=== PATIENT | female | born 1940 | race Caucasian/White ===

== ENCOUNTER → 2017-09-24 | Outpatient (CLI) | payer MEDICARE, OTHER ==
[~2017-09-24] MED LIST: ACE3 PO; ACE325 PO; ACE500 PO; ACET-1966 PO; ALB18R INH; AMI25 PO; AMIT-106 PO; APIX5TAB PO; ASP325 PO; ASPI-757 PO; ATOR10TA24 PO; ATR10 PO; BENZ200C15 PO; CALC-515 PO; CALC-649 PO; CALC-852 PO; CALC1TAB85 PO; CARB25DR2 OP; CLIN300C99 PO; CLO1 PO; CLOB15CR22 TP; CLOB50SO11 TP; CLON-303 PO; CLON-389 PO; CPAP; DEX4 FT; DILT120C18 PO; DOC100 PO; DOCU-416 PO; EST42T VG; ESTR42.5 VG; FERR-41 PO; FERR-53 PO; FERR325T24 PO; FLE100 FT; FLE100 PO; FLEC50TA16 PO; FLU IM; FLU44R INH; FLU45SYR17 IM; FLU45SYR25 IM ONLY; FLU60SYR30 IM ONLY; FLUT16SP19 NS; GAV PO; GLAT20KI3 SQ; GUAI1200 PO; GUAI600T57 PO; IRON45TA3 PO; KETO5DRO13 OP; LEV500 PO; LEVO750T44 PO; LORA-1455 PO; LORA-799 PO; LOSA25TA50 PO; LOSA50TA72 PO; LOSA50TA73 PO; LUTE20TA PO; METAMUCIL POWD283 GM PO; METH4TAB66 PO; METR-1 PO; METRO500PT PO; MOM PO; MOMR; MOMR ENA; MON10 PO; MONT10TA PO; MULT-1 PO; MULT-27 PO; OM-31CAP PO; OMEG-11 PO; OMEP40CA45 PO; PAN40 PO; PANT40TA65 PO; PER PO; POLY119P37 PO; POLY17PO25 PO; PSYL1PAC24 PO; PYRI100T57 PO; RAL60 PO; RALO60TA12 PO; RIVA20TA PO; TRIA10.8 NS; [UNRECOGNIZED DRUG - CODE] IV; [UNRECOGNIZED DRUG - CODE] PO; [UNRECOGNIZED DRUG - CODE] PO; [UNRECOGNIZED DRUG - CODE] PO; [UNRECOGNIZED DRUG - CODE] PO
== END ==
LOC: LAB 10:57
PROVIDERS: ATTEND Nurse Practitioner Primary Care
DX: I10 Essential (primary) hypertension (principal); E78.2 Mixed hyperlipidemia; J02.9 Acute pharyngitis, unspecified
CPT/HCPCS: 87081

== ENCOUNTER 2017-09-26 13:57 | Outpatient (RCR) | payer MEDICARE, OTHER ==
[2017-07-30 10:07] VITALS: BP 149/75
[2017-07-30 10:25] LABS: PLATELET COUNT, AUTOMATED 203 K/uL (150-450)
[2017-08-02 11:38] VITALS: BP 147/76
--- NOTE | 2017-08-02 13:49 | ONC Progress Note - NP.Halsey ---
Patient History Date of Service Aug 02, 2017 Reason For Visit/HPI Patient is seen in the clinic today for follow-up of her iron deficiency anemia. Patient also has a prior history of breast cancer diagnosed in 2012. Patient has a history of multiple sclerosis. Patient was seen approximately 2 months ago for a low hemoglobin and hematocrit. Iron studies were completed in ferritin level was at 9. Patient was fatigued and weak. She was started on ferrous sulfate 324 mg twice a day. Today patient reports that her energy has increased and her fatigue has decreased. She is tolerating the iron supplement without difficulty. She denies any constipation. Ferritin level is increased to 34 today. Patient has recently had an exacerbation of her MS and was treated with Solu-Medrol. She reports that her chronic back pain has completely resolved after the steroid therapy. She did experience increased heart palpitations while going through steroid therapy but this is also resolved today. She has no concerns. Problem List (1) Iron (Fe) deficiency anemia (2) Breast cancer of upper-inner quadrant of right female breast Oncology History (1) Breast cancer of upper-inner quadrant of right female breast (2) Anemia (3) Multiple sclerosis Oncology History The patient is a 76-year-old asymptomatic female who had an abnormal mammogram on routine examination on June 25, 2012 indicating a new group of pleomorphic calcifications in the medial upper portion of the right breast on mammogram. 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 Margins were positive. On July 29, 2012 the patient had a left breast mastectomy and sentinel lymph node biopsy. Zero out of four nodes were positive for malignancy. Pathology on July 29, 2012 addendum reports that the mastectomy specimen shows residual high grade ductal carcinoma in situ in the region adjacent to the biopsy cavity. Residual invasive carcinoma is not seen. The patient has also followed with her command center officer and reports that she will continue on the flecainide 100 mg twice a day. The command center officer reported to the patient that should her echocardiogram go down to 52% that then he would want to see her again, otherwise she will not follow up for another year. Patient's hemoglobin and hematocrit were noted to be decreased, with a hemoglobin of 11.2, hematocrit 34.4% and a ferritin level was 9 drawn on 12/01/ 2017. Iron studies indicate iron deficiency anemia. Patient was started on ferrous sulfate 324 mg twice a day and ferritin level is currently 34. Patient had stool occult cards completed and they came back negative. Patient refuses at this time to have upper GI scope and colonoscopy completed. Medical History Family History: FH: CHF (congestive heart failure) FATHER, , Age:79 MOTHER, , Age:88 FH: HTN (hypertension) FATHER, , Age:79 MOTHER, , Age:88 FH: AL (myocardial infarction) MATERNAL GRANDFATHER, , Age:51 FH: atrial fibrillation MOTHER, , Age:88 BROTHER OR SISTER, Age:74 BROTHER OR SISTER, Age:76 FH: heart disease MOTHER, , Age:88 PATERNAL GRANDFATHER PATERNAL GRANDMOTHER, , Age:60 years and older Medical History Family History: FH: CHF (congestive heart failure) FATHER, , Age:79 MOTHER, , Age:88 FH: HTN (hypertension) FATHER, , Age:79 MOTHER, , Age:88 FH: AL (myocardial infarction) MATERNAL GRANDFATHER, , Age:51 FH: atrial fibrillation MOTHER, , Age:88 BROTHER OR SISTER, Age:74 BROTHER OR SISTER, Age:76 FH: heart disease MOTHER, , Age:88 PATERNAL GRANDFATHER PATERNAL GRANDMOTHER, , Age:60 years and older Psychosocial History Social History Patient is Occupational History Patient is retired Alcohol History She denies any use Smoking History: No Smoking Status: Never Smoker Exposure to Second Hand Smoke?: Yes Medications and Allergies Active Scripts Atorvastatin Calcium (LIPITOR) 10 Mg Tablet, 1 TAB PO QDAY, #90 TAB 3 Refills Prov:HAWA LOERA MD 06/27/17 Pantoprazole Sodium (PANTOPRAZOLE SODIUM) 40 Mg Tablet., 1 TAB PO QDAY, #90 TAB.SR 3 Refills Prov:HAWA LOERA MD 05/30/17 Ferrous Sulfate (FERROUS SULFATE) 325 Mg Tablet., 325 MG PO BID, #60 TAB 6 Refills Prov:KIRILL CARO SENIOR CONTROLS ENGINEER-BC, ONC 05/21/17 Raloxifene Hcl (EVISTA) 60 Mg Tablet, 1 TAB PO QDAY, #90 TAB 3 Refills Prov:HAWA LOERA MD 02/26/17 Montelukast Sodium (SINGULAIR) 10 Mg Tablet, 1 TAB PO QDAY, #90 TAB 4 Refills Prov:HAWA LOERA MD 11/08/16 Diltiazem Hcl (DILTIAZEM 24HR CD) 120 Mg Cap.er.24h, 1 CAP PO QDAY, #30 TAB Prov:HAWA LOERA MD 02/08/16 Clonazepam (CLONAZEPAM) 1 Mg Tablet, 1.5 TAB PO HS for Sleep, #45 TAB 1 Refill may take 1/2 tab if awakens during the night may take 1/2 tab during daytime prn tremorms Prov:HAWA LOERA MD 03/15/15 Reported Medications Guaifenesin (MUCINEX) 1,200 Mg Tbmp.12hr, 1200 MG PO HS 08/02/17 Polyethylene Glycol 3350 (Glycolax) 17 Gram/Dose Powder, 17 G PO PRN 03/22/17 Acetaminophen (TYLENOL) 325 Mg Tablet, 500 MG PO PRN, TAB 03/22/17 Calcium Carbonate (TUMS) 200 Mg Tab.chew, 200 MG PO DAILY, TAB.CHEW 03/22/17 Albuterol Sulfate (VENTOLIN HFA) 18 Gm Inh, 2 PUFF INH Q4-6H Y for shortness of breath, INH 03/07/17 Carboxymethylcell/Hypromellose (GENTEAL GEL DROPS) 25 Ml Drp.lq.gel, 1-2 GTT OP BID 09/20/16 Flecainide Acetate (FLECAINIDE ACETATE) 50 Mg Tablet, 1 TAB PO BID, TAB 08/14/16 Calcium Carbonate/Vitamin D3 (CALCIUM + VITAMIN D TABLET) 1 Each Tablet, 1 TAB PO QDAY 08/14/16 Ketotifen Fumarate (ZADITOR) 5 Ml Drops, 1 GTT OP BID Y for allergies 02/09/16 Cpap (CPAP HOME) Inha, HS 02/08/16 Apixaban (ELIQUIS) 5 Mg Tablet, 1 TAB PO BID, TAB 11/30/15 Fluticasone Prop 50 Mcg Ns (FLONASE 50 MCG NS) 16 Gm Kulm.susp, 1 SPRAY NS QDAY , BOT 11/20/15 Fluticasone Prop 44 Mcg (FLOVENT HFA 44 MCG) 44 Mcg Inha, 2 PUFF INH BID 07/06/15 Psyllium Seed/Aspartame (METAMUCIL POWDER) 283 Gm Powder, 1 TSP PO DAILY 03/16/14 Om-3/Dha/Epa/Fish Oil/Vit D3 (FISH OIL + VITAMIN D-3 SOFTGEL) 1 Each Capsule, 1 EACH PO DAILY, CAPSULE 03/16/14 Docusate Sodium (COLACE) 100 Mg Capsule, 1 CAP PO BID, CAPSULE 03/16/14 Amitriptyline Hcl (AMITRIPTYLINE HCL) 25 Mg Tablet, 1 TAB PO QHS, TAB 03/10/14 Mu-Vits-Min Th/Lycopene/Lutein (CENTRUM SILVER TABLET) 1 Each Tablet, 1 TAB PO DAILY 03/09/14 Discontinued Reported Medications Methylprednisolone (METHYLPREDNISOLONE) 4 Mg Tab.ds.pk, 4 MG PO DIRECTED, TAB 03/22/17 Allergies: Coded Allergies: Sulfa (Sulfonamide Antibiotics) (Verified Allergy, Severe, HIVES, 11/20/15) cefaclor (Verified Allergy, Severe, HIVES, 11/20/15) heparin (Verified Allergy, Severe, RASH, 11/20/15) amoxicillin (Verified Allergy, Intermediate, RASH, 11/20/15) fingolimod (Unverified Allergy, Intermediate, palpatations, elevated BP, ) nitrofurantoin (Verified Allergy, Mild, ITCHING, 11/20/15) bisacodyl (Verified Allergy, Unknown, ANAPHYLAXIS, 11/20/15) codeine (Unverified Allergy, Unknown, 11/20/15) risedronate sodium (Unverified Allergy, Unknown, Exacerbate MS, 11/20/15) shellfish derived (Unverified Allergy, Unknown, Lobster =vomitting, 11/20/15 ) trastuzumab (Verified Allergy, Unknown, 11/20/15) glatiramer acetate (Verified Adverse Reaction, Intermediate, VOMITING AND FEVER AND CHILLS, 11/20/15) WALDEMAR Inhibitors (Unverified Adverse Reaction, Mild, cough, 11/20/15) benazepril (Verified Adverse Reaction, Mild, COUGH, 11/20/15) Uncoded Allergies: magnesium citrate (Adverse Reaction, Severe, nausea and vomiting, 04/04/14) Review of System/Physical Exam Review of Systems All Systems Reviewed/Normal: Yes, Except as Noted Hematologic: Positive for Fatigue (improved and rated a 5 out of 10) Musculoskeletal: Positive for Muscle Pain (related to 2 out of 10), Positive for Joint Pain, Positive for Bone Pain Physical Exam Vital Signs Temperature: 96.8 Pulse: 71 BP Systolic: 147 BP Diastolic: 76 Respiratory Rate: 16 O2 SAT: 97 O2 Delivery: Room Air Height (inches) 63.00 Weight lb: 142 Weight oz: 6.0 Weight Kg (Gabino): 64.58 Pain: 2 ECOG Score: 0 General: Stable, Well Developed, Well Nourished, Not In Acute Distress Neck: Supple Lungs: Clear to Auscultation Heart: Regular Rate, Regular Rhythm, No Gallops Abdomen: Soft and Nontender, No Hepatosplenomegaly, No Masses, Other (bowel sounds are active) Extremities: No Cyanosis, No Clubbing, No Edema Lymphadenopathy: No Cervical Psychiatric: Mood appears normal, Affect appears normal Skin: No Skin Rashes Diagnostic Studies Diagnostic Studies Laboratory Laboratory Tests 07/30/17 10:05 Laboratory Tests 07/30/17 10:05: White Blood Count 6.9, Red Blood Count 5.19, Hemoglobin 14.7, Hematocrit 44.2, Mean Corpuscular Volume 85.2, Mean Corpuscular Hemoglobin 28.3, Mean Corpuscular Hemoglobin Concent 33.3, Red Cell Distribution Width 22.5, Platelet Count 203, Mean Platelet Volume 9.1, Neutrophils (%) (Auto) 56.0, Lymphocytes (% ) (Auto) 33.1, Monocytes (%) (Auto) 7.8, Eosinophils (%) (Auto) 2.8, Basophils ( %) (Auto) 0.3, Nucleated RBC Relative Count (auto) 0.0, Neutrophils # (Auto) 3.9 , Lymphocytes # (Auto) 2.3, Monocytes # (Auto) 0.5, Eosinophils # (Auto) 0.2, Basophils # (Auto) 0.0, Nucleated RBC Absolute Count (auto) 0.00, Peripheral Blood Smear Yes, Sodium Level 141, Potassium Level 4.7, Chloride Level 103, Carbon Dioxide Level 26, Blood Urea Nitrogen 16, Creatinine 1.00, Glomerular Filtration Rate Calc 53.5, Random Glucose 86, Calcium Level 9.4, Iron Level 93, Total Iron Binding Capacity 275, Percent Iron Saturation 33.8, Ferritin 34, Total Bilirubin 0.3, Aspartate Amino Transf (AST/SGOT) 26, Alanine Aminotransferase (ALT/SGPT) 34, Alkaline Phosphatase 86, Total Protein 6.4, Albumin 3.6 Assessment and Plan Assessment & Plan 1. Stage IB (pT1c pN0 cM0) invasive ductal carcinoma of the right breast. Tumor size was 2 cm ER/SD negative, HER2/randell positive by immunohistochemistry. Four sentinel lymph nodes were negative for metastasis. Patient received adjuvant chemotherapy with six cycles of TCH regimen with carboplatin, Taxotere and Herceptin, received between August 28, 2012 through January 26, 2013. Patient completed one year of Herceptin adjuvant therapy September 15, 2013. Her echocardiogram showed normal left ventricular ejection fraction after the end of her treatment, done February 2014, and left ventricular ejection fraction at that time was 60%. Her CA 27-29 and CA 15-3 are within the normal range and remain stable. She will follow again in November with a CBC, chem panel, CA 27-29 and CA 15-3. Recent mammogram was unremarkable. Prescriptions for bra and prosthesis were completed earlier this month. 2. Left lower lobe pulmonary nodule. Patient had CT scan in the past and PET scan which were negative for any progression. The patient is followed by a outdoor landscape architect 3. Drop of her hemoglobin by nearly 1 g. stools for Hemoccult blood were negative. Patient does not want to have a GI workup completed due to previous history of complications in 2013. Patient started on iron supplement and has had significant improvement overall. She will continue on one tablet a day. 4. Atrial fibrillation status post ablation, January 2016. 5. Multiple sclerosis recent exacerbation, patient was treated with Solu- Medrol. No recent exacerbation 6. History of small bowel obstruction status post resection, September 2014. 7. Iron deficiency anemia. Ferritin level is 9. She was started on ferrous sulfate 324 mg twice a day. Repeat ferritin level and iron studies are improved. Patient is having good toleration. She will continue on 1 tablet daily. 8. Patient has initiated a do not resuscitate order with our last office visit. PLAN 1. Follow-up in November with Dr. Vargas for management of her breast cancer 2. Continue ferrous sulfate 325 mg 1 tablet daily 3. Patient to return in six months with CBC, chem panel, CA 27-29 and CA 15-3. 4. Patient is to contact us for any new concerns or complaints. I personally spent a total of 20 minutes. Of that 20 minutes was counseling/ coordination of patient's care. See my note above for details. Copies to: HAWA LOERA MD,KIRILL Quezada SENIOR CONTROLS ENGINEER-BC, ONC Aug 02, 2017 13:49
[2017-09-20 13:11] VITALS: BP 142/85
[2017-09-20 13:16] LABS: PLATELET COUNT, AUTOMATED 203 K/uL (150-450)
[2017-09-26 14:01] VITALS: BP 137/83
--- NOTE | 2017-09-26 20:04 | ONCOLOGY FOLLOW UP NOTE ---
EVENT DATE: September 26, 2017 DIAGNOSES 1. History of breast cancer. 2. Multiple sclerosis times 21 years. 3. Small bowel obstruction, status post resection in September 2012. CHIEF COMPLAINT The patient is here today for followup of her breast cancer. ONCOLOGY HISTORY The patient is a 77-year-old asymptomatic female who had an abnormal mammogram on routine examination on June 25, 2012 indicating a new group of pleomorphic calcifications in the medial upper portion of the right breast on mammogram. 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 Margins were positive. On July 29, 2012 the patient had a left breast mastectomy and sentinel lymph node biopsy. Zero out of four nodes were positive for malignancy. Pathology on July 29, 2012 addendum reports that the mastectomy specimen shows residual high grade ductal carcinoma in situ in the region adjacent to the biopsy cavity. Residual invasive carcinoma is not seen. The patient also followed with her automat car attendant prior to this office visit and reports that she will continue on the flecainide 100 mg twice a day. The automat car attendant reported to the patient that should her echocardiogram go down to 52% that then he would want to see her again, otherwise she will not follow up for another year. PATHOLOGY On July 15, 2012: Right breast infiltrating ductal carcinoma and extensive high grade ductal carcinoma in situ with comedo necrosis. Size of invasive carcinoma: 2.0 x 1.0 x 1.8 cm. Distant from margins: Tumor is present at the surgical margins. Histological: Grade 2. Lymphovascular invasion: Negative. Lymph nodes with metastatic tumor: Negative. Estrogen receptor: Negative. Progesterone receptor: Negative. HER2/randell: Over expressed, 3+. KI-6y: Intermediate at 28%. P53: Negative. TREATMENT The patient is receiving Taxotere, carboplatin, and Herceptin. This was started on August 28, 2012 on a three week basis. There was a disruption due to a small bowel ileus and obstruction. HISTORY OF PRESENT ILLNESS Patient is here today for followup of her breast cancer. She is complaining of runny nose and occasional cough. She has pain in the wrist, neck, lower back. She has tingling and numbness and headache. She has also easy bruising and she is weak, tired and fatigued. PAST MEDICAL HISTORY 1. Multiple sclerosis diagnosed 21 years ago. 2. Gastroesophageal reflux disease (GERD). 3. Migraines. 4. Hypertension. 5. Hypercholesterolemia. 6. Degenerative joint disease (DJD). 7. Atrial fibrillation. 8. Arthritis. PAST SURGICAL HISTORY 1. Breast biopsies on the right times five, left times one from the mid to present. 2. Cholecystectomy in 1987. 3. Appendectomy in 1987. 4. Vaginal hysterectomy in 1977, this was for vaginal prolapse, ovaries were not removed. 5. Bilateral cataracts in 2008. 6. Open reduction internal fixation (ORIF) of the left fifth metatarsal in the mid . 7. Direct laryngoscope with excision, benign lesion vocal cord, in October of 1999. 8. Acute obstructive epiglottis with intubation and mechanical ventilation for two days in August of 1999. SOCIAL HISTORY The patient is . She has two children. She is a retired registered RN in the surgical area. She drinks maybe two to three drinks per month. She does not smoke or use tobacco products. Her father was a heavy cigar and cigarette smoker, so she does have second hand smoke exposure. FAMILY HISTORY Father had cancer of his lower lip at age 60. Sister had pancreatic cancer at age 69. Mothers brother had pancreatic cancer at age 69. MEDICATIONS 1. Flecainide 100 mg twice daily. 2. Lipitor 10 mg daily. 3. Losartan/Cozaar 25 mg twice a day. 4. Amitriptyline 35 mg at bedtime. 5. Klonopin 1 mg at bedtime. 6. Singular 10 mg daily. 7. Nasonex nasal spray p.r.n. 8. Aspirin 325 mg daily. 9. Calcium 500 mg with vitamin D 500 mg three times a day. 10. Centrum silver one daily. 11. Evista 60 mg daily. 12. Tylenol 650 mg p.r.n. 13. Gaviscon liquid p.r.n. 14. Premarin vaginal cream twice weekly. 15. Colace 100 mg twice a day. 16. Metamucil one teaspoon daily. 17. Pantoprazole 40 mg daily. 18. Ativan 1 mg p.o. every 4 to 6 hours p.r.n. nausea. ALLERGIES 1. AMOXICILLIN, causes a rash. 2. CECLOR, possible reaction. 3. MACRODANTIN, causes itching. 4. SULFA, causes hives. 5. LOTENSIN, causes a cough. 6. TYLENOL #3 WITH CODEINE. The patient had a reaction. 7. IV LEVAQUIN possible reaction in the veins. THE PATIENT HAS SEVERAL ENVIRONMENTAL ALLERGIES TO ADHESIVE TAPES, BAND-AIDS, DUST AND POLLEN. REVIEW OF SYSTEMS CONSTITUTIONAL: No appetite or weight change. No fever, chills or sweating. No recent infection. HEENT: Ears: No tinnitus or hearing problem. Nose: She has nasal discharge. No epistaxis. Throat: No sore throat or mouth ulcers. Eyes: No diplopia or visual changes. RESPIRATORY: She has cough. CARDIOVASCULAR: She had rapid A-fib recently, treated with ablation therapy January 2016. GASTROINTESTINAL: She has constipation. GENITOURINARY: No hematuria or dysuria. MUSCULOSKELETAL: She has pain in the wrists, neck, lower back. NEUROLOGICAL: She has tingling and numbness in the hands and feet and headaches. HEMATOLOGIC/LYMPHATIC: She bruises easily. She is weak, tired and fatigued. SKIN: No skin rash or lumps. PSYCHIATRIC: No anxiety or depression. PHYSICAL EXAMINATION GENERAL: Looks stable. Well-developed, well-nourished, and in no acute distress. VITAL SIGNS: Blood pressure 137/83, pulse 79 per minute, respirations 16 per minute, temperature 97.6, pulse ox 95% on room air. HEENT: Head: Atraumatic. No sinus tenderness to palpation. Eyes: No icterus or conjunctivitis. Mouth and throat: No oral thrush or mucositis. NECK: Supple. No cervical or supraclavicular lymphadenopathy. LUNGS: Clear to auscultation and percussion bilaterally. HEART: Regular rate and rhythm. No gallops, murmurs, clicks or rubs. ABDOMEN: Soft and lax. No tenderness. No hepatosplenomegaly. No masses. EXTREMITIES: No cyanosis, clubbing or edema. LYMPHATICS: No peripheral lymphadenopathy. NEUROLOGICAL: Conscious, alert and oriented times three. No focal motor or sensory deficits. PSYCHIATRIC: Mood and affect appear normal. SKIN: No skin rash, bruise or purpuric eruption. DIAGNOSTIC DATA CBC shows a white count of 6000, hemoglobin 15.9, hematocrit 45.6, platelets 203 ,000. Chem panel normal except creatinine 1.1. CA 15-3 is normal at 11 and CA 27-29 is normal at 14. ASSESSMENT 1. Stage IB (pT1c pN0 cM0) invasive ductal carcinoma of the right breast. Tumor size was 2 cm ER/FL negative, HER2/randell positive by immunohistochemistry. Four sentinel lymph nodes were negative for metastasis. Patient received adjuvant chemotherapy with six cycles of TCH regimen with carboplatin, Taxotere and Herceptin, received between August 28, 2012 through January 26, 2013. She completed one year of Herceptin adjuvant therapy September 15, 2013. Her echocardiogram showed normal left ventricular ejection fraction after the end of her treatment, done February 2014, and left ventricular ejection fraction at that time was 60%. Her CA 27-29 and CA 15-3 currently are normal and stable. I am planning to continue followup. I am planning to see her again in six months with CBC, chem panel, CA 27-29 and CA 15-3, and I am planning after that to start to see her once a year, as the patient will be completing five years in six months. 2. Left lower lobe pulmonary nodule. Patient had CT in the past and PET scan which were negative for any progression. The patient is followed by a grain blender 3. Iron deficiency anemia. Patient currently on iron supplement started in May 2017. I advised the patient to continue iron supplementation for a total of six months to replenish her iron stores. 4. Atrial fibrillation status post ablation, January 2016. 5. Multiple sclerosis which is getting worse lately. 6. History of small bowel obstruction status post resection, September 2014. PLAN 1. Continue followup. 2. Patient to return in six months with CBC, chem panel, CA 27-29 and CA 15-3. 3. Patient is to contact us for any new concerns or complaints. [facility]
== END 2017-10-04 16:21 | disposition home or self-care (01) ==
LOC: ONC 13:57
PROVIDERS: ATTEND Internal Medicine Hematology
DX: Z85.3 Personal history of malignant neoplasm of breast (principal); R91.1 Solitary pulmonary nodule; I48.91 Unspecified atrial fibrillation; G35 Multiple sclerosis; D50.9 Iron deficiency anemia, unspecified; Z92.21 Personal history of antineoplastic chemotherapy; R05 Cough; R53.1 Weakness; R53.83 Other fatigue; K59.00 Constipation, unspecified; Z79.82 Long term (current) use of aspirin; Z79.899 Other long term (current) drug therapy
CPT/HCPCS: 36415; 82728; 83540; 83550; 85025; 86300; G0463; 82040; 82247; 82310; 82374; 82435; 82565; 82947; 84075; 84132; 84155; 84295; 84450; 84460; 84520; 99212

== ENCOUNTER → 2017-12-30 | Outpatient (CLI) | payer MEDICARE, OTHER ==
[~2017-12-30] MED LIST changes: +ACET500T68 PO; -CLON-303 PO; +CLON-304 PO
== END ==
LOC: LAB 13:24
PROVIDERS: ATTEND Nurse Practitioner Primary Care
DX: J02.9 Acute pharyngitis, unspecified (principal)
CPT/HCPCS: 87081

== ENCOUNTER 2018-04-17 12:23 | Outpatient (RCR) | payer MEDICARE, OTHER ==
[2018-04-11 11:49] VITALS: BP 161/82
[2018-04-11 12:01] LABS: PLATELET COUNT, AUTOMATED 197 K/uL (150-450)
[~2018-04-17 12:23] MED LIST changes: -CLON-304 PO; +CLON-333 PO; +DILT60TA33 PO; +FLU180SY11 IM; -LOSA25TA50 PO; +LOSA25TA52 PO; -LOSA50TA72 PO; +LOSA50TA74 PO
[2018-04-17 12:38] VITALS: BP 148/85
--- NOTE | 2018-04-18 00:36 | [facility] ONCOLOGY NOTE ---
EVENT DATE: April 17, 2018 DIAGNOSES 1. History of breast cancer. 2. Multiple sclerosis times 21 years. 3. Small bowel obstruction, status post resection in September 2012. CHIEF COMPLAINT The patient is here today for followup of her breast cancer. ONCOLOGY HISTORY The patient is a 77-year-old asymptomatic female who had an abnormal mammogram on routine examination on June 25, 2012 indicating a new group of pleomorphic calcifications in the medial upper portion of the right breast on mammogram. 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 Margins were positive. On July 29, 2012 the patient had a left breast mastectomy and sentinel lymph node biopsy. Zero out of four nodes were positive for malignancy. Pathology on July 29, 2012 addendum reports that the mastectomy specimen shows residual high grade ductal carcinoma in situ in the region adjacent to the biopsy cavity. Residual invasive carcinoma is not seen. The patient also followed with her acid correction hand prior to this office visit and reports that she will continue on the flecainide 100 mg twice a day. The acid correction hand reported to the patient that should her echocardiogram go down to 52% that then he would want to see her again, otherwise she will not follow up for another year. PATHOLOGY On July 15, 2012: Right breast infiltrating ductal carcinoma and extensive high grade ductal carcinoma in situ with comedo necrosis. Size of invasive carcinoma: 2.0 x 1.0 x 1.8 cm. Distant from margins: Tumor is present at the surgical margins. Histological: Grade 2. Lymphovascular invasion: Negative. Lymph nodes with metastatic tumor: Negative. Estrogen receptor: Negative. Progesterone receptor: Negative. HER2/randell: Over expressed, 3+. KI-6y: Intermediate at 28%. P53: Negative. TREATMENT The patient is receiving Taxotere, carboplatin, and Herceptin. This was started on August 28, 2012 on a three week basis. There was a disruption due to a small bowel ileus and obstruction. HISTORY OF PRESENT ILLNESS Patient is here today for followup of her breast cancer. She is complaining of cough and shortness of breath sometimes due to asthma. She has pain in her hands, feet, ankles, and wrist. She has also neuropathy, more in the feet than the hands. She is also having headache. She bruises easily. She is weak, tired and fatigued. PAST MEDICAL HISTORY 1. Multiple sclerosis diagnosed 21 years ago. 2. Gastroesophageal reflux disease (GERD). 3. Migraines. 4. Hypertension. 5. Hypercholesterolemia. 6. Degenerative joint disease (DJD). 7. Atrial fibrillation. 8. Arthritis. PAST SURGICAL HISTORY 1. Breast biopsies on the right times five, left times one from the mid to present. 2. Cholecystectomy in 1987. 3. Appendectomy in 1987. 4. Vaginal hysterectomy in 1977, this was for vaginal prolapse, ovaries were not removed. 5. Bilateral cataracts in 2008. 6. Open reduction internal fixation (ORIF) of the left fifth metatarsal in the mid . 7. Direct laryngoscope with excision, benign lesion vocal cord, in October of 1999. 8. Acute obstructive epiglottis with intubation and mechanical ventilation for two days in August of 1999. SOCIAL HISTORY The patient is . She has two children. She is a retired registered RN in the surgical area. She drinks maybe two to three drinks per month. She does not smoke or use tobacco products. Her father was a heavy cigar and cigarette smoker, so she does have second hand smoke exposure. FAMILY HISTORY Father had cancer of his lower lip at age 60. Sister had pancreatic cancer at age 69. Mothers brother had pancreatic cancer at age 69. MEDICATIONS 1. Flecainide 100 mg twice daily. 2. Lipitor 10 mg daily. 3. Losartan/Cozaar 25 mg twice a day. 4. Amitriptyline 35 mg at bedtime. 5. Klonopin 1 mg at bedtime. 6. Singular 10 mg daily. 7. Nasonex nasal spray p.r.n. 8. Aspirin 325 mg daily. 9. Calcium 500 mg with vitamin D 500 mg three times a day. 10. Centrum silver one daily. 11. Evista 60 mg daily. 12. Tylenol 650 mg p.r.n. 13. Gaviscon liquid p.r.n. 14. Premarin vaginal cream twice weekly. 15. Colace 100 mg twice a day. 16. Metamucil one teaspoon daily. 17. Pantoprazole 40 mg daily. 18. Ativan 1 mg p.o. every 4 to 6 hours p.r.n. nausea. ALLERGIES 1. AMOXICILLIN, causes a rash. 2. CECLOR, possible reaction. 3. MACRODANTIN, causes itching. 4. SULFA, causes hives. 5. LOTENSIN, causes a cough. 6. TYLENOL #3 WITH CODEINE. The patient had a reaction. 7. IV LEVAQUIN possible reaction in the veins. THE PATIENT HAS SEVERAL ENVIRONMENTAL ALLERGIES TO ADHESIVE TAPES, BAND-AIDS, DUST AND POLLEN. REVIEW OF SYSTEMS CONSTITUTIONAL: No appetite or weight change. No fever, chills or sweating. No recent infection. HEENT: Ears: No tinnitus or hearing problem. Nose: No nasal discharge or epistaxis. Throat: No sore throat or mouth ulcers. Eyes: No diplopia or visual changes. RESPIRATORY: Patient has cough and shortness of breath. CARDIOVASCULAR: No chest pain, orthopnea, or paroxysmal nocturnal dyspnea (PND). No edema. No palpitations. GASTROINTESTINAL: No nausea or vomiting. No diarrhea or constipation. No change in bowel movements. No heartburn or swallowing difficulties. No abdominal pain. No jaundice. No hematemesis, melena or rectal bleeding. GENITOURINARY: No hematuria or dysuria. MUSCULOSKELETAL: She has pain in the hands, feet, ankles, and wrists. NEUROLOGICAL: She has neuropathy, more in the feet than the hands. She also has occasional headache. HEMATOLOGIC/LYMPHATIC: She bruises easily. She is weak, tired, and fatigued. SKIN: No skin rash or lumps. PSYCHIATRIC: No anxiety or depression. PHYSICAL EXAMINATION GENERAL: Looks stable. Well-developed, well-nourished, and in no acute distress. VITAL SIGNS: Blood pressure 148/85, pulse 72 per minute, respirations 16 per minute, temperature 98, pulse oximetry 95% on room air. HEENT: Head: Atraumatic. No sinus tenderness to palpation. Eyes: No icterus or conjunctivitis. Mouth and throat: No oral thrush or mucositis. NECK: Supple. No cervical or supraclavicular lymphadenopathy. LUNGS: Clear to auscultation and percussion bilaterally. HEART: Regular rate and rhythm. No gallops, murmurs, clicks or rubs. ABDOMEN: Soft and lax. No tenderness. No hepatosplenomegaly. No masses. EXTREMITIES: No cyanosis, clubbing or edema. LYMPHATICS: No peripheral lymphadenopathy. NEUROLOGICAL: Conscious, alert and oriented times three. No focal motor or sensory deficits. PSYCHIATRIC: Mood and affect appear normal. SKIN: No skin rash, bruise or purpuric eruption. DIAGNOSTIC DATA CBC showed a white count of 6.5, hemoglobin 14.4, hematocrit 43.4, platelets 197,000. Chem panel totally normal. CA 15-3 is normal at 11, and CA 27-29 is normal at 10.4. ASSESSMENT 1. Stage IB (pT1c pN0 cM0) invasive ductal carcinoma of the right breast. Tumor size was 2 cm, ER/RI negative, HER2/randell positive by immunohistochemistry. Four sentinel lymph nodes were negative for metastasis. Patient received adjuvant chemotherapy with six cycles of TCH regimen with carboplatin, Taxotere and Herceptin received between August 28, 2012, through January 26, 2013. She completed one year of Herceptin adjuvant therapy September 15, 2013. Her echocardiogram done in February 2014 showed left ventricular ejection fraction at 60%. CA 27-29 and CA 15-3 currently are normal and stable. Her CA 15-3 is 11 and CA 27-29 is 10.4. I am planning to continue followup. As the patient is over five years since her diagnosis, I am planning to see her in a year with CBC, chem panel, CA 27-29 and CA 15-3. 2. Atrial fibrillation status post ablation, January 2016. Currently on Eliquis. 3. Multiple sclerosis, followed by neurologist. 4. History of small bowel obstruction status post resection, September 2014. PLAN 1. Continue followup. 2. Patient to return in one year with CBC, chem panel, CA 27-29 and CA 15-3. 3. Patient is to contact us for any new concerns or complaints. [facility] HOSPITALRomero
== END 2018-05-14 13:19 | disposition home or self-care (01) ==
LOC: ONC 12:23
PROVIDERS: ATTEND Internal Medicine Hematology
DX: Z85.3 Personal history of malignant neoplasm of breast (principal); I48.91 Unspecified atrial fibrillation; G35 Multiple sclerosis; R05 Cough; R06.02 Shortness of breath; G62.9 Polyneuropathy, unspecified; Z92.21 Personal history of antineoplastic chemotherapy; R53.1 Weakness; R53.83 Other fatigue; R51 Headache
CPT/HCPCS: 85025; 86300; G0463; 82040; 82247; 82310; 82374; 82435; 82565; 82947; 84075; 84132; 84155; 84295; 84450; 84460; 84520; 99212

== ENCOUNTER → 2018-05-22 | Outpatient (CLI) | payer MEDICARE, OTHER ==
--- NOTE | 2018-05-23 13:13 | RADIOLOGY IMAGING REPORT ---
[place] [facility] [place] RONDA CONTE : [id number] MR: [id number] V: [id number] EXAM DATE: [id number] ORDERING PHYSICIAN: EVELYN FENG TECHNOLOGIST: Sherin Pitts PROCEDURE: MAMMOGRAM SCREENING LEFT UNILATERAL WITH CAD ASSISTED INTERPRETATION & 3D TOMOSYNTHESIS COMPARISON: Prior mammograms 05/16/17, 05/03/16, 06/02/15, 06/29/14, 06/26/13. INDICATIONS: SCREENING FINDINGS: Moderately dense heterogeneous fibroglandular tissue is seen throughout the Left breast. The parenchymal pattern has remained stable allowing for difference in mammographic technique & patient positioning. There is no evidence of malignant appearing mass, malignant appearing calcifications or other secondary sign of malignancy in the Left breast. DIAGNOSTIC CATEGORY 1--NEGATIVE. RECOMMENDATIONS: ROUTINE MAMMOGRAM AND CLINICAL EVALUATION. IMPRESSION: BIRADS 1: Negative. No significant abnormality is seen. Dictated by: Ella Alvarado M.D. on 05/22/2018 at 11:13 Transcribed by: MIKE on 05/22/2018 at 13:38 Approved by: Ella Alvarado M.D. on 05/23/2018 at 13:11 [facility]
== END ==
LOC: MAMO 10:36
PROVIDERS: ATTEND Internal Medicine Hematology
DX: C50.211 Malignant neoplasm of upper-inner quadrant of right female breast (principal)
CPT/HCPCS: 77063; 77067

== ENCOUNTER 2018-08-01 16:38 | Emergency (ER) | payer MEDICARE, OTHER ==
[~2018-08-01 16:38] MED LIST changes: +DILT120C12 PO; -DILT120C18 PO; +DILT180C4 PO; -LOSA25TA52 PO; +LOSA25TA57 PO; -LOSA50TA74 PO; +LOSA50TA80 PO
--- NOTE | 2018-08-01 17:03 | ER Report ---
History and Physical Time Seen By MD: 16:50 Hx. of Stated Complaint: pt slipped on ice and hit tailbone and back of head. HPI/ROS CHIEF COMPLAINT: Head injury, back pain after fall. HISTORY OF PRESENT ILLNESS: She reports that approximately 3:30 she was walking outside of her house and pain attention to the ice but slipped on a patch of ice on her sidewalk she fell backwards struck her tailbone and hit the back of her head. She did not lose consciousness. She was able to get herself up and a bili back in the house. At this point she got an ice pack but due to the continued pain, swelling, and the fact that she is on Elequis is concerned about a bleed she presented to the emergency department. Pain is now moderate and located in the back of her head and lower back/tailbone. She denies blurred vision, diffic ulty breathing, chest pain, nausea or vomiting, new weakness or numbness, or any other associated symptoms. She is on Elequis for atrial fibrillation. REVIEW OF SYSTEMS: Constitutional: No fever, no chills. Eyes: no blurred vision ENT: no epistaxis, no dental injury Cardiovascular: No chest pain, no palpitations. Respiratory: No cough, no shortness of breath. Gastrointestinal: No abdominal pain, no vomiting. Genitourinary: no dysuria Musculoskeletal: above Skin: No rashes; contusion to back of head Neurological: no loss of consciousness Remainder of the 14 system rev: Yes Allergies: Coded Allergies: Sulfa (Sulfonamide Antibiotics) (Verified Allergy, Severe, HIVES, 11/20/15) cefaclor (Verified Allergy, Severe, HIVES, 11/20/15) heparin (Verified Allergy, Severe, RASH, 11/20/15) amoxicillin (Verified Allergy, Intermediate, RASH, 11/20/15) fingolimod (Unverified Allergy, Intermediate, palpatations, elevated BP, 11/20/15) nitrofurantoin (Verified Allergy, Mild, ITCHING, 11/20/15) bisacodyl (Verified Allergy, Unknown, ANAPHYLAXIS, 11/20/15) codeine (Unverified Allergy, Unknown, 11/20/15) risedronate sodium (Unverified Allergy, Unknown, Exacerbate MS, 11/20/15) shellfish derived (Unverified Allergy, Unknown, Lobster =vomitting, 11/20/15) trastuzumab (Verified Allergy, Unknown, 11/20/15) glatiramer acetate (Verified Adverse Reaction, Intermediate, VOMITING AND FEVER AND CHILLS, 11/20/15) WALDEMAR Inhibitors (Unverified Adverse Reaction, Mild, cough, 11/20/15) benazepril (Verified Adverse Reaction, Mild, COUGH, 11/20/15) Uncoded Allergies: colonoscopy prep (Allergy, Unknown, 08/01/18) magnesium citrate (Adverse Reaction, Severe, nausea and vomiting, 04/04/14) Home Meds Active Scripts Atorvastatin Calcium (LIPITOR) 10 Mg Tablet, 1 TAB PO QDAY, #90 TAB 3 Refills Prov:HAWA LOERA MD 07/09/18 Pantoprazole Sodium (PANTOPRAZOLE SODIUM) 40 Mg Tablet.dr, 1 TAB PO QDAY, #90 TAB.SR 3 Refills Prov:HAWA LOERA MD 07/09/18 Raloxifene Hcl (EVISTA) 60 Mg Tablet, 1 TAB PO QDAY, #90 TAB 3 Refills Prov:HAWA LOERA MD 04/16/18 Montelukast Sodium (SINGULAIR) 10 Mg Tablet, 1 TAB PO QDAY, #90 TAB 3 Refills Prov:HAWA LOERA MD 02/03/18 Clonazepam (CLONAZEPAM) 1 Mg Tablet, 1.5 TAB PO HS for Sleep, #45 TAB 1 Refill may take 1/2 tab if awakens during the night may take 1/2 tab during daytime prn tremorms Prov:HAWA LOERA MD 03/15/15 Reported Medications Diltiazem Hcl (DILTIAZEM 24HR CD) 180 Mg Cap.er.24h, 1 CAP PO QDAY, CAP 07/09/18 Diltiazem Hcl (DILTIAZEM HCL) 60 Mg Tablet, 1 TAB PO QID PRN for atrial fib 02/19/18 Acetaminophen (TYLENOL EXTRA STRENGTH) 500 Mg Tablet, 2 TAB PO QID PRN for pain, CAP 10/15/17 Guaifenesin (MUCINEX) 1,200 Mg Tbmp.12hr, 1 TAB PO HS 08/02/17 Polyethylene Glycol 3350 (Glycolax) 17 Gram/Dose Powder, 17 G PO PRN 03/22/17 Calcium Carbonate (TUMS) 200 Mg Tab.chew, 1 TAB PO DAILY PRN for heartburn, TAB.CHEW 03/22/17 Albuterol Sulfate (VENTOLIN HFA) 18 Gm Inh, 2 PUFF INH Q4-6H PRN for shortness of breath, INH 03/07/17 Carboxymethylcell/Hypromellose (GENTEAL GEL DROPS) 25 Ml Drp.lq.gel, 1-2 GTT OP DAILY 09/20/16 Calcium Carbonate/Vitamin D3 (CALCIUM + VITAMIN D TABLET) 1 Each Tablet, 1 TAB PO QDAY 08/14/16 Cpap (CPAP HOME) Inha, HS 02/08/16 Apixaban (ELIQUIS) 5 Mg Tablet, 1 TAB PO BID, TAB 11/30/15 Fluticasone Prop 50 Mcg Ns (FLONASE 50 MCG NS) 16 Gm [place].susp, 1 SPRAY NS QDAY, BOT 11/20/15 Fluticasone Prop 44 Mcg (FLOVENT HFA 44 MCG) 44 Mcg Inha, 2 PUFF INH BID 07/06/15 Psyllium Seed/Aspartame (METAMUCIL POWDER) 283 Gm Powder, 1 TSP PO DAILY 03/16/14 Om-3/Dha/Epa/Fish Oil/Vit D3 (FISH OIL + VITAMIN D-3 SOFTGEL) 1 Each Capsule, 1 EACH PO DAILY, CAPSULE 03/16/14 Docusate Sodium (COLACE) 100 Mg Capsule, 1 CAP PO BID, CAPSULE 03/16/14 Amitriptyline Hcl (AMITRIPTYLINE HCL) 25 Mg Tablet, 1 TAB PO QHS, TAB 03/10/14 Mu-Vits-Min Th/Lycopene/Lutein (CENTRUM SILVER TABLET) 1 Each Tablet, 1 TAB PO DAILY 03/09/14 Reviewed Nurses Notes: Yes Hx Smoking: No Smoking Status: Never Smoker Exposure to Second Hand Smoke?: Yes Hx Substance Use Disorder: No Hx Alcohol Use: Yes (occ) Constitutional Vital Sign - Last 24 Hours 08/01/18 16:44 Temp 97.6 Pulse 98 Resp 16 B/P (MAP) 178/108 Pulse Ox 95 O2 Delivery Room Air Physical Exam General Appearance: The patient is alert, has no immediate need for airway protection and no signs of toxicity. Head; pt has 4x4 cm contusion to occiput. No bony stepoffs. No lacerations. Eyes: Pupils equal and round no pallor or injection. ENT, Mouth: Mucous membranes are moist. No malocclusion. Midface stable. Respiratory: There are no retractions, lungs are clear to auscultation. Cardiovascular: Regular rate and rhythm. no m/r/g Gastrointestinal: Abdomen is soft and non tender, no masses, bowel sounds normal. Neurological: alert, oriented x 4, cn ii-xii intact, no ataxia, nl fnf, no ddk, nl sensation, 5/5 strength throughout. Very mild bilateral resting tremor Skin: Warm and dry, no rashes. Musculoskeletal: Neck is supple non tender. Extremities are nontender, nonswollen and have full range of motion. Patient has tenderness to right sacrum and coccyx without step-off. DIFFERENTIAL DIAGNOSIS: After history and physical exam differential diagnosis was considered for intracranial hemorrhage, closed head injury, fracture, dislocation, or other complication of fall. Syncope, PE, or other cause of fall. Medical Decision Making ED Course/Re-evaluation ED Course 78-year-old female presents after ground level fall without loss of consciousness. We'll this is generally low risk mechanism, she is 78 and on Elequis so will CT after considering risks and benefits. Images unremarkable, patient ambulates at baseline on discharge. She states that she has had [place] before without ill effect though she would only like a half tab at once. This is reasonable for acute pain. We will discharge with a couple to take home and recommend Tylenol subsequently. Decision to Disposition Date: Aug 01, 2018 Decision to Disposition Time: 18:04 Depart Departure Latest Vital Signs Vital Signs Date Time Temp Pulse Resp B/P (MAP) Pulse Ox O2 Delivery O2 Flow Rate FiO2 08/01/18 16:44 97.6 98 16 178/108 95 Room Air Impression: Primary Impression: Head contusion Additional Impression: Sacral contusion Condition: Improved Disposition: HOME OR SELF-CARE Referrals: HAWA LOERA MD (PCP) Patient Instructions: Contusion in Adults (ED) Additional Instructions: As we discussed, though your CT does not show evidence of a bleed, as you are on Elequis it is a small likelihood that you can develop a delayed bleed. If you have concerning pain, confusion, weakness or any concerning symptoms please return immediately for further evaluation. You may take 1/2 tab of norco every 4 hours tonight. If you have continued pain you may take 650mg tylenol every 4-6 hours as needed. Problem Qualifiers Primary Impression: Head contusion Encounter type: initial encounter Contusion of head detail: scalp Qualified Codes: S00.03XA - Contusion of scalp, initial encounter Additional Impression: Sacral contusion Encounter type: initial encounter Qualified Codes: S30.0XXA - Contusion of lower back and pelvis, initial encounter JOSE STANTON MD Aug 01, 2018 17:03
--- NOTE | 2018-08-01 17:49 | RADIOLOGY IMAGING REPORT ---
FACILITY: [facility] PATIENT NAME: Jordyn Sneed : 1940 MR: [id number] V: [id number] EXAM DATE: ORDERING PHYSICIAN: JOSE STANTON TECHNOLOGIST: Location: [facility] - [place] Patient: Jordyn Sneed : 1940 Visit/Account:[id number] Date of Sevice: 08/01/2018 CT OF THE BRAIN WITHOUT CONTRAST HISTORY: Fall. On anticoagulation. PROCEDURE: 3.0 mm contiguous axial sections were performed through the brain. Sagittal and coronal r eformats were submitted. COMPARISON: None FINDINGS: BRAIN: Brain and intracranial structures: There is no mass lesion, hemorrhage or acute infarct. Periventricu lar and deep white matter hypoattenuation is nonspecific but probably reflects chronic ischemic quintana e. Orbits (included portions): Unremarkable. Scalp: There is a large posterior scalp hematoma at midline. Skull: No skull fracture. Paranasal sinuses and mastoid air cells (included portions): Normal. IMPRESSION: Large posterior scalp hematoma near midline but no skull fracture and no evidence of acute intracrani al abnormality. One of the following dose optimization techniques was utilized in the performance of this exam: Autom ated exposure control; adjustment of the mA and/or kV according to the patient's size; or use of an i terative reconstruction technique. Specific details can be referenced in the facility's radiology C T exam operational policy. Report Dictated By: Jennifer Khanna MD at 08/01/2018 5:35 PM Report E-Signed By: Jennifer Khanna MD at 08/01/2018 5:45 PM WSN:[id number]
--- NOTE | 2018-08-01 17:54 | RADIOLOGY IMAGING REPORT ---
[place] [facility] [place] NAME: Jordyn Sneed : 1940 MR: [id number] V: [id number] EXAM DATE: ORDERING PHYSICIAN: JOSE STANTON TECHNOLOGIST: Location: [facility] Patient: Jordyn Sneed : 1940 Visit/Account:[id number] Date of Sevice: 08/01/2018 INDICATION: fall, right sacral/coccyx tenderness to palpation. DATE: 08/01/2018 5:46 PM. TECHNIQUE: SACRUM & COCCYX COMPARISON: None FINDINGS: The pelvic ring appears intact. There is no conspicuous sacral fracture. Bone density is di ffusely decreased. Multilevel degenerative findings are noted in the lumbar spine. IMPRESSION: No conspicuous fracture. Report Dictated By: Jennifer Khanna MD at 08/01/2018 5:46 PM Report E-Signed By: Jennifer Khanna MD at 08/01/2018 5:50 PM WSN:[id number]
[2018-08-01] MEDS ORDERED: APAP/HYDROCODONE 325/5 TAB PO ONE (18:05)
[2018-08-01 18:11] VITALS: BP 176/94
== END 2018-08-01 18:20 | disposition home or self-care (01) ==
LOC: ER 16:56
DX: S00.03XA Contusion of scalp, initial encounter (principal); S30.0XXA Contusion of lower back and pelvis, initial encounter; W00.0XXA Fall on same level due to ice and snow, initial encounter
CPT/HCPCS: 70450; 72220; 99284; A9270

== ENCOUNTER → 2018-08-05 | Outpatient (CLI) | payer MEDICARE, OTHER | LOC: LAB 11:42 | PROVIDERS: ATTEND Emergency Medicine | DX: E53.8 Deficiency of other specified B group vitamins (principal); M85.80 Other specified disorders of bone density and structure, unspecified site | CPT/HCPCS: 36415; 82306; 84425 ==

== ENCOUNTER → 2018-08-13 | Outpatient (CLI) | payer MEDICARE, OTHER ==
--- NOTE | 2018-08-13 15:23 | RADIOLOGY IMAGING REPORT ---
FACILITY: [facility] - [place] PATIENT NAME: Jordyn Sneed : 1940 MR: [id number] V: [id number] EXAM DATE: ORDERING PHYSICIAN: ROSHNI MCQUEEN TECHNOLOGIST: Location: [facility] [place] Patient: Jordyn Sneed : 1940 Visit/Account:[id number] Date of Sevice: 08/13/2018 DEXA Scan Clinical history: Osteopenia. Comparison: DEXA scan from 2014. LUMBAR SPINE: The bone mineral density (BMD) measured from L1-L4 correlates with a Z-score of 0.4 and a T-score of -1.5 which is osteopenia as defined by the World Health Organization. The corresponding risk of frac ture in the lumbar spine is 3 times increased compared with a young adult reference population. This value has increased by 1.4 % since the prior study. More than 5% change is considered significant. HIP: Bone mineral density (BMD) measured in the LEFT total hip region correlates with a Z-score is 0.5 and a T-score of -2.6 which is osteoporosis as defined by the World Health Organization. The correspond ing risk of fracture in the hip is 68 times increased compared to a young adult reference population. This value has decrease by 3.1 % since the prior study. More than 5% change is considered significa nt. T score left femoral neck -2.6 Bone mineral density (BMD) measured in the Femoral Neck region measures 0.678 g/cm?. IMPRESSION: 1. Lumbar spine: Osteopenia. There has been 1.4% increase in the bone mineral density since the pre vious exam. 2. Left Total Hip: Osteoporosis. There has been 3.1% increase in the bone mineral density since the previous exam. 3. Femoral Neck: Bone Mineral Density is 0.678 g/cm? The next DEXA scan of this patient should include the following sites: L1-L4 and the left hip. FRAX? WHO Fracture Risk Assessment Tool link: <http://www.shef.ac.uk/FRAX/tool.jsp?locationValue=9> PLEASE NOTE: 1) The World Health Organization defines low BMD as follows: T-score Normal > -1 Osteopenia < -1 and > -2.5 Osteoporosis < -2.5 without fractures Established osteoporosis < -2.5 with fractures 2) In general, you may wish to consider: Diagnosis Treatment Follow-up DEXA Normal BMD Prevention 2-3 years Osteopenia Prevention/therapy 1-2 years Osteoporosis Therapy Yearly 3) Fracture risk estimated from the T-score is more accurate for vertebral fractures (often spontane ous) than for hip fractures. Report Dictated By: Ella Alvarado MD at 08/13/2018 3:16 PM Report E-Signed By: Ella Alvarado MD at 08/13/2018 3:17 PM WSN:[email or web address]
== END ==
LOC: RAD 00:58
PROVIDERS: ATTEND Emergency Medicine
DX: M81.0 Age-related osteoporosis without current pathological fracture (principal); M85.89 Other specified disorders of bone density and structure, multiple sites
CPT/HCPCS: 77080

== ENCOUNTER → 2018-10-25 | Outpatient (REF) | payer MEDICARE, OTHER ==
[~2018-10-25] MED LIST changes: +CETI5TAB25 PO
== END ==
LOC: LAB 17:29
PROVIDERS: ATTEND Emergency Medicine
DX: R10.9 Unspecified abdominal pain (principal)
CPT/HCPCS: 87338

== ENCOUNTER → 2018-10-30 | Outpatient (CLI) | payer MEDICARE, OTHER | LOC: LAB 16:43 | PROVIDERS: ATTEND Emergency Medicine | DX: Z01.818 Encounter for other preprocedural examination (principal) | CPT/HCPCS: 36415; 82565 ==

== ENCOUNTER → 2018-11-06 | Outpatient (CLI) | payer MEDICARE, OTHER ==
[~2018-11-06] MED LIST changes: +ATOR20TA65 PO; +IOPAMIDOL 76% 100 ML INFUS BTL 100 ML ONE
--- NOTE | 2018-11-06 11:06 | RADIOLOGY IMAGING REPORT ---
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 TECHNIQUE: Following administration of IV contrast axial images acquired through the chest abdomen a nd pelvis during the portal venous phase. Coronal and sagittal reformatting was also performed.Dose Lowering Technique One of the following dose optimization techniques was utilized in the performance of this exam: Autom ated exposure control; adjustment of the mA and/or kV according to the patient's size; or use of an i terative reconstruction technique. Specific details can be referenced in the facility's radiology C T exam operational policy. CONTRAST: 75 mL Isovue-370 COMPARISON: CT the chest May 22, [address] of abdomen pelvis October 13, 2012 FINDINGS: CHEST: Lungs/Pleura: The previously noted 3 mm noncalcified nodule in the posterior aspect left lower lobe has remained stable and is best seen on image 187 of series 3. The groundglass opacity in the superior segment of the left lower lobe appears slightly more prominen t although the apparent difference may be related to the difference in slice thickness (1 mm slice th ickness on the current examination and 5 mm slice thickness on the prior study. The nodule measured approximately 1 x 0.7 cm previously now measuring 1.6 x 0.8 cm. No new pulmonary nodules are identified. There is mild biapical pleural parenchymal scarring that re rakan stable. There is no evidence of pleural effusions. There is a small amount of scarring in the left lower lobe that remains stable Mediastinum/lymph nodes: There are numerous subpectoral and left axillary lymph nodes that are new s leora the prior study ranging in size up to 1.2 x 0.9 cm. Heart/vessels: There calcifications at the root of the aorta and very mild calcifications in the cor onary arteries. Calcifications are also noted at the mitral annulus Bones/soft tissues: There postsurgical changes from a right mastectomy. No aggressive appearing bon e lesions are seen ABDOMEN AND PELVIS: Hepatobiliary: There postsurgical changes from a cholecystectomy with mild intra and extrahepatic du ctal dilatation. These may simply be related to the postcholecystectomy changes Spleen: Negative. Pancreas: Negative. Adrenals: Negative. Kidneys ureters and bladder : Kidneys appear unremarkable. There appears to be a cystocele present Genitalia: Uterus not visualized GI: There is a small bowel anastomosis low within the pelvis. Small bowel Jung focally dilated a t the site of the anastomosis although no other bowel dilatation identified there for this is likely related to a patulous segment. There is a moderate amount of fecal material throughout colon which c an be seen with constipation Vessels/spaces/nodes: There is a 1.5 x 1.6 cm ovoid hypoattenuating process in the lateral mid left pelvis. This is just medial to the left internal iliac artery and vein . This may be a cyst within an ovarian remnant versus lymph node. There are mild atherosclerotic calcifications throughout the abdomen and pelvis Bones/soft tissues: There is mild scoliosis lumbar spine with moderate spondylotic changes. No aggr essive appearing bone lesions are seen Additional findings: None pertinent. IMPRESSION: Previously noted 3 mm noncalcified nodule in the posterior aspect the left lower lobe has remained st able The groundglass opacity in the superior segment of the left lower lobe is slightly more prominent as described above. This could be related to the differen e in slice thickness although short-term inte rval follow-up recommended given the clinical history of breast cancer and squamous cell carcinoma No new pulmonary nodules are seenThere are numerous left subpectoral and left axillary lymph nodes ra nging in size up to 1.2 x 0.9 cm. These were not present on the prior CT the chest from May 22, 2017 therefore clinical correlation needed.. Correlation with mammography may be helpful given patie nt's history. 1.5 x 1.6 cm ovoid hypoattenuating process in the lateral mid left pelvis. This may represent a cyst within an ovarian remnant versus lymph node. Additional chronic findings as described Report Dictated By: Ella Alvarado MD at 11/06/2018 10:04 AM Report E-Signed By: Ella Alvarado MD at 11/06/2018 11:02 AM WSN:[id number]
== END ==
LOC: CT 00:56
PROVIDERS: ATTEND Emergency Medicine
DX: R10.9 Unspecified abdominal pain (principal); R91.1 Solitary pulmonary nodule
CPT/HCPCS: 71260; 74177; Q9967

== ENCOUNTER 2018-11-27 00:23 | Day surgery (SDC) | payer MEDICARE, OTHER ==
--- NOTE | 2018-11-24 14:17 | EKG ---
[place] [facility] [place]: RONDA CONTE : [id number] MR: [id number] V: [id number] EXAM DATE: ORDERING PHYSICIAN: GEORGE LAMB TECHNOLOGIST: CARLOS Test Reason : PREOP-THYROID Blood Pressure : / mmHG Vent. Rate : 068 BPM Atrial Rate : 068 BPM P-R Int : 154 ms QRS Dur : 066 ms QT Int : 402 ms P-R-T Axes : 067 032 070 degrees QTc Int : 427 ms Normal sinus rhythm Normal ECG When compared with ECG of 20-NOV-2015 15:34, Sinus rhythm has replaced Atrial fibrillation Vent. rate has decreased BY 41 BPM Confirmed by ELIZABETH MORENO ([id number]) on 11/24/2018 5:13:46 PM Referred By: RICHARD Confirmed By:ELIZABETH MORENO
[2018-11-24 14:29] LABS: PLATELET COUNT, AUTOMATED 252 K/uL (150-450)
[~2018-11-27] VITALS: Ht 160 cm; Wt 59.9 kg
[~2018-11-27 00:23] MED LIST changes: +AZIT-1 PO; -IOPAMIDOL 76% 100 ML INFUS BTL 100 ML ONE
[2018-11-27] MEDS ORDERED: NORMOSOL R SOLN(*) 1000 ML BAG 1,000 ML IV PRN (06:00)
[2018-11-27] MEDS ORDERED: MIDAZOLAM 2 MG/2 ML VIAL IVP PRN (06:00)
[2018-11-27] MEDS ORDERED: VANCOMYCIN 1 GM ADDVIAL 1 GM in NS(*) 0.9% 250 ML ADDVAN BAG 250 ML IVPB ONE (06:00)
[2018-11-27] MEDS ORDERED: LIDOCAINE/SOD BICARB 8.4% SYR ID ONE (06:00)
[2018-11-27] MEDS ORDERED: ROPIVACAINE 0.5% 20 ML VIAL ONE (06:30)
[2018-11-27] MEDS ORDERED: ISOSULFAN BLUE 1% SLN 50MG/5ML ONE (06:30)
[2018-11-27 06:38] VITALS: BP 172/96
[2018-11-27] MEDS ORDERED: fentaNYL CITR 100 MCG/2 ML AMP ONE (06:42)
[2018-11-27] MEDS ORDERED: PROPOFOL EMUL(*) 10MG/ML 20 ML 20 ML ONE (06:43)
[2018-11-27] MEDS ORDERED: DEXAMETHASONE SOD 4 MG/ML VIAL ONE (06:43)
[2018-11-27] MEDS ORDERED: ONDANSETRON 4 MG/2 ML VIAL ONE (06:43)
[2018-11-27] MEDS ORDERED: LIDOCAINE MPF 1% 5 ML VIAL ONE (06:43)
[2018-11-27] MEDS ORDERED: DOCU-416 PO (06:47)
[2018-11-27] MEDS ORDERED: TRAM-420 PO (06:47)
[2018-11-27] MEDS ORDERED: ESMOLOL 10 MG/ML 10ML SDV ONE (07:11)
[2018-11-27] MEDS ORDERED: NS 0.9% 20 ML SDV 20 ML ONE (07:12)
[2018-11-27] MEDS ORDERED: LIDOCAINE 2% JELLY 5 ML TUBE ONE (07:18)
[2018-11-27] MEDS ORDERED: VASOPRESSIN 20 UNIT/ML VIAL ONE (07:31)
--- NOTE | 2018-11-27 08:02 | Short(Outpt) Discharge Summary ---
Discharge Summary Reason for Hosp/Final Diag: (1) Lymphadenopathy, axillary Status: Chronic Hospital Course & Plan: Left axillary lymph nodes excised without problems. Departure Discharge to: Home, Self Care Discharge Instructions Home Meds Active Scripts Docusate Sodium (COLACE) 100 Mg Capsule, 1 CAP PO BID, #30 CAPSULE 0 Refills Prov:ELIZABETH RAMOS MD 11/27/18 Tramadol Hcl (TRAMADOL HCL) 50 Mg Tablet, 1 TAB PO Q4H PRN for PAIN, #14 TAB 0 Refills Prov:ELIZABETH RAMOS MD 11/27/18 Azithromycin (ZITHROMAX) 250 Mg Tablet, 2 TAB PO ONCE, #6 TAB Take two now and then 1 daily Prov:ROSHNI MCQUEEN MD 11/19/18 Atorvastatin Calcium (ATORVASTATIN CALCIUM) 20 Mg Tablet, 1 TAB PO QDAY, #30 TAB 11 Refills Prov:ROSHNI MCQUEEN MD 11/06/18 Clonazepam (CLONAZEPAM) 1 Mg Tablet, 0.75 TAB PO HS for Sleep, #45 TAB 1 Refill Prov:ROSHNI MCQUEEN MD 10/24/18 Pantoprazole Sodium (PANTOPRAZOLE SODIUM) 40 Mg Tablet.dr, 1 TAB PO QDAY, #90 TAB.SR 3 Refills Prov:HAWA LOERA MD 07/09/18 Raloxifene Hcl (EVISTA) 60 Mg Tablet, 1 TAB PO QDAY, #90 TAB 3 Refills Prov:HAWA LOERA MD 04/16/18 Montelukast Sodium (SINGULAIR) 10 Mg Tablet, 1 TAB PO QDAY, #90 TAB 3 Refills Prov:HAWA LOERA MD 02/03/18 Reported Medications Cetirizine Hcl (CETIRIZINE HCL) 5 Mg Tablet, 5 MG PO QDAY, TAB 10/24/18 Diltiazem Hcl (DILTIAZEM 24HR CD) 180 Mg Cap.er.24h, 1 CAP PO QDAY, CAP 07/09/18 Diltiazem Hcl (DILTIAZEM HCL) 60 Mg Tablet, 1 TAB PO QID PRN for atrial fib 02/19/18 Acetaminophen (TYLENOL EXTRA STRENGTH) 500 Mg Tablet, 2 TAB PO QID PRN for pain, CAP 10/15/17 Guaifenesin (MUCINEX) 1,200 Mg Tbmp.12hr, 1 TAB PO HS 2/16/18 Polyethylene Glycol 3350 (Glycolax) 17 Gram/Dose Powder, 17 G PO PRN 03/22/17 Calcium Carbonate (TUMS) 200 Mg Tab.chew, 1 TAB PO DAILY PRN for heartburn, TAB.CHEW 03/22/17 Albuterol Sulfate (VENTOLIN HFA) 18 Gm Inh, 2 PUFF INH Q4-6H PRN for shortness of breath, INH 03/07/17 Carboxymethylcell/Hypromellose (GENTEAL GEL DROPS) 25 Ml Drp.lq.gel, 1-2 GTT OP DAILY 09/20/16 Calcium Carbonate/Vitamin D3 (CALCIUM + VITAMIN D TABLET) 1 Each Tablet, 1 TAB PO QDAY 08/14/16 Cpap (CPAP HOME) Inha, HS 02/08/16 Apixaban (ELIQUIS) 5 Mg Tablet, 1 TAB PO BID, TAB 11/30/15 Fluticasone Prop 50 Mcg Ns (FLONASE 50 MCG NS) 16 Gm Stafford.susp, 1 SPRAY NS QDAY, BOT 11/20/15 Fluticasone Prop 44 Mcg (FLOVENT HFA 44 MCG) 44 Mcg Inha, 2 PUFF INH BID 07/06/15 Psyllium Seed/Aspartame (METAMUCIL POWDER) 283 Gm Powder, 1 TSP PO DAILY 03/16/14 Om-3/Dha/Epa/Fish Oil/Vit D3 (FISH OIL + VITAMIN D-3 SOFTGEL) 1 Each Capsule, 1 EACH PO DAILY, CAPSULE 03/16/14 Docusate Sodium (COLACE) 100 Mg Capsule, 1 CAP PO BID, CAPSULE 03/16/14 Amitriptyline Hcl (AMITRIPTYLINE HCL) 25 Mg Tablet, 1 TAB PO QHS, TAB 03/10/14 Mu-Vits-Min Th/Lycopene/Lutein (CENTRUM SILVER TABLET) 1 Each Tablet, 1 TAB PO DAILY 03/09/14 Follow up Referrals: General Surgery - 12/17/18 @ Surgery, General with ELIZABETH RAMOS MD You have a follow up appointment scheduled with Dr. Ramos on 12/17/18, at 2:30pm. Diet: Regular Activity: As Tolerated Special Instructions: You may remove the white surgical dressing on 11/29/18, then you can shower. After showering, leave the incision open to air but leave the steristrips in place until they fall off on their own. Do not immerse the incision for 2 weeks. You may restart Jeffery on 11/29/18. ELIZABETH RAMOS MD Nov 27, 2018 06:51
--- NOTE | 2018-11-27 08:08 | Post Operative Progress Note ---
Post Operative Progress Note Date: Nov 27, 2018 Time: 06:52 Surgeon: Kristen Dictation number: [id number] Anesthesia: LMA by Dr. Madrid Pre-Op Diagnosis: Left axillary LAD H/O right breast cancer Post-Op Diagnosis: NILES Findings: C/W dx Procedure(s): Left axillary exploration and deep axillary LN excision Specimen Removed:(May be N/A): Left axillary lymph nodes, 3 seperate lymph nodes removed along with some axillary fat that was sent seperately. Complications: None Fluids: See anesthesia record Estimated Blood Loss: Minimal Date OP Note Dictated: Nov 27, 2018 Time OP Note Dictated: 06:53 ELIZABETH RAMOS MD Nov 27, 2018 06:53
[2018-11-27] MEDS ORDERED: traMADol 50 MG TAB ONE (08:20)
[2018-11-27] MEDS ORDERED: traMADol 50 MG TAB PO ONE (08:22)
[2018-11-27 08:30] VITALS: BP 148/69
--- NOTE | 2018-11-27 08:31 | OPERATIVE REPORT 1 ---
EVENT DATE: November 27, 2018 SURGEON: Holland Peterson MD ANESTHESIOLOGIST: Wellington Madrid MD ANESTHESIA: LMA. PREOPERATIVE DIAGNOSES 1. Left axillary lymphadenopathy. 2. History of right breast cancer. POSTOPERATIVE DIAGNOSES 1. Left axillary lymphadenopathy. 2. History of right breast cancer. PROCEDURE PERFORMED Left axillary exploration and deep axillary lymph node excision. COMPLICATIONS None. CONDITION Stable. ESTIMATED BLOOD LOSS Minimal. SPECIMENS Three separate lymph nodes were sent fresh to pathology for histopathologic examination and flow cytometry and then some axillary fat was also sent separately, which just came out via the bag section but I did not feel any lymph nodes in this, although I have asked them to look for lymph nodes in the fat. INDICATIONS This is an 78-year old female who has a previous history of right breast cancer treated with mastectomy and it was apparently a stage 1B and she did not require chemotherapy or radiation and has been in remission. She recently underwent a CT scan of her chest, abdomen and pelvis for surveillance and this revealed some left axillary lymphadenopathy so she was referred to me to evaluate the enlarged lymph nodes to determine if they represent a neoplasm. DESCRIPTION OF PROCEDURE The patient was brought to the operating room, placed supine on the operating room table. LMA anesthesia was administered and the axilla was prepped and draped in a sterile fashion. Time-out was completed and I injected the axillary skin with 0.5% ropivacaine plain. I made an incision in the left axilla and dissected through the dermis and subcutaneous fat and identified the clavipectoral fascia and I divided this and entered the axillary contents. I also referred to the CT scan during surgery to identify the largest nodes and there was one right in the middle of the axillary contents that I easily removed and then a smaller one adjacent to this, which was removed separately but was not really enlarged. There was one below the pectoralis major muscle that I also was able to remove and sent this separately. In the process of this dissection, there was some fat that was basically hanging by just a thin pedicle so I just removed this, palpated it and did not feel any palpable nodules but I sent this separately to pathology and asked them to see if they could identify any lymph nodes in it and to examine it for any other abnormalities. The axilla was hemostatic. I irrigated and dried the axilla and closed the axillary contents with running 3-0 Vicryl suture and the clavipectoral fascia was closed with running 3-0 Vicryl suture and the subcutaneous tissues were closed with another layer of 3-0 Vicryl sutures and the skin was closed with running 3-0 Vicryl deep dermal sutures and 4-0 Monocryl running subcuticular sutures. The skin was cleaned, dried and Steri-Strips were applied followed by a sterile surgical dressing. The patient was awakened and LMA removed. The patient was transported to the recovery room in stable condition, having tolerated the procedure without any apparent problems. CHRISTINE
[2018-11-27 08:45] VITALS: BP 143/79
[2018-11-27 08:50] VITALS: BP 146/87
[2018-11-27 08:51] VITALS: BP 140/96
== END 2018-11-27 08:30 | disposition home or self-care (01) ==
LOC: OR 00:23
PROVIDERS: ATTEND Surgery
DX: R59.0 Localized enlarged lymph nodes (principal); Z85.3 Personal history of malignant neoplasm of breast; I50.9 Heart failure, unspecified; I48.91 Unspecified atrial fibrillation
CPT/HCPCS: 36415; 38525; 85025; 88305; 88342; 93005; A9270; J1100; J2001; J2405; J2704; J2795; J3010; J3370; J3490; J7030; J7050; 82310; 82374; 82435; 82565; 82947; 84132; 84295; 84520; Q9968